=== PATIENT | female | born 1985 | race Caucasian/White ===

== ENCOUNTER 2016-04-18 10:29 | Emergency (ER) | payer OTHER ==
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
--- NOTE | 2016-04-18 11:48 | ED ---
Lower Extremity - HPI Summary HPI Summary: Pt here w/ tripping over cat this morning and twisted Rt ankle. Swelling over Rt lateral malleolus - soft tissue tender and some pain w/ ROM, weight bearing. Denies numbness/tingling/weakness, bruising or erythema. Has not taken anything for pain and does not want anything for pain at this time. No foot, toe, knee, hip or back pain. No other injuries to report. Did not hit her head nor lose consciousness. - History of Current Complaint Chief Complaint: EDExtremityLower Stated Complaint: FALL / RT ANKLE INJURY Time Seen by Provider: 04/18/16 10:42 Hx Obtained From: Patient Hx Last Menstrual Period: 08/06/15 Pain Intensity: 5 - Allergies/Home Medications Allergies/Adverse Reactions: Allergies Allergy/AdvReac Type Severity Reaction Status Date / Time Cefaclor [From [facility]] Allergy Hives Verified 08/27/15 09:25 PMH/Surg Hx/FS Hx/Imm Hx Previously Healthy: Yes Endocrine/Hematology History: Denies: Hx Anticoagulant Therapy, Hx Blood Disorders, Hx Diabetes, Hx Thyroid Disease Cardiovascular History: Denies: Hx Hypertension Respiratory History: Denies: Hx Asthma, Hx Chronic Obstructive Pulmonary Disease (COPD) GI History: Denies: Hx Ulcer Sensory History: Denies: Hx Contacts or Glasses Opthamlomology History: Denies: Hx Contacts or Glasses - Surgical History Surgery Procedure, Year, and Place: Cholecystectomy. Tubal. T & A Infectious Disease History: No Infectious Disease History: Denies: Hx Hepatitis, Hx Human Immunodeficiency Virus (HIV), Traveled Outside the [place] in Last 30 Days - Family History Known Family History: Positive: Hypertension - Social History Alcohol Use: None Substance Use Type: Reports: None Hx Tobacco Use: No Smoking Status (MU): Never Smoked Tobacco Review of Systems Negative: Fatigue Negative: Chest Pain Negative: Shortness Of Breath Negative: Vomiting, Nausea Positive: no symptoms reported Musculoskeletal: Other - see HPI Skin: Negative Neurological: Negative Psychological: Normal All Other Systems Reviewed And Are Negative: Yes Physical Exam Triage Information Reviewed: Yes Vital Signs On Initial Exam: Initial Vitals Temp Pulse Resp BP Pulse Ox 98.4 F 82 20 112/74 98 04/18/16 10:31 04/18/16 10:31 04/18/16 10:31 04/18/16 10:31 04/18/16 10:31 Vital Signs Reviewed: Yes Appearance: Positive: Well-Appearing, No Pain Distress, Well-Nourished Skin: Positive: Warm, Dry - no erythema, no ecchymosis over affected area Head/Face: Positive: Normal Head/Face Inspection ENT: Positive: Hearing grossly normal, Pharynx normal - mucosa moist Respiratory/Lung Sounds: Positive: Breath Sounds Present Cardiovascular: Positive: Normal, Pulses are Symmetrical in both Upper and Lower Extremities - DP's +2, cap refill < 2 secs Musculoskeletal: Positive: Strength/ROM Intact - TTP over soft tissue swelling and lateral malleolus Neurological: Positive: Normal, Sensory/Motor Intact, Alert, Oriented to Person Place, Time, CN Intact II-III Psychiatric: Positive: Normal Diagnostics - Vital Signs Vital Signs Temp Pulse Resp BP Pulse Ox 04/18/16 10:31 98.4 F 82 20 112/74 98 - Laboratory Lab Statement: Any lab studies that have been ordered have been reviewed, and results considered in the medical decision making process. Lower Extremity Course/Dx - Diagnoses Provider Diagnoses: Right ankle sprain Discharge - Discharge Plan Condition: Stable Disposition: HOME Patient Education Materials: Ankle Sprain (ED), Crutch Instructions (ED), Ankle Stirrup Splint (ED) Referrals: Isidro Puga MD [Primary Care Provider] - Additional Instructions: Rest, Ice, Compress with ALISON wrap, Elevate Use crutches and advance to weight bearing as tolerated Follow-up with PCP in 1-2 weeks - if pain persists, may benefit from further assessment, treatment. *If you develop worse swelling with numbness or discoloration of foot, return to ED
[2016-04-18 12:16] VITALS: BP 118/64
== END 2016-04-18 12:14 | disposition home or self-care (01) ==
LOC: ED 10:29
DX: S99.911A Unspecified injury of right ankle, initial encounter (principal); W19.XXXA Unspecified fall, initial encounter; Y93.9 Activity, unspecified; Y92.9 Unspecified place or not applicable; Y99.9 Unspecified external cause status
CPT/HCPCS: 99282

== ENCOUNTER 2016-08-18 21:26 | Emergency (ER) | payer OTHER ==
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
[2016-08-19 00:07] VITALS: BP 126/73
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
== END 2016-08-18 23:40 | disposition home or self-care (01) ==
LOC: ED 21:26
DX: S00.81XA Abrasion of other part of head, initial encounter (principal); S00.33XA Contusion of nose, initial encounter; M54.2 Cervicalgia; R51 Headache; Y09 Assault by unspecified means; Y93.9 Activity, unspecified; Y92.9 Unspecified place or not applicable
CPT/HCPCS: 70450; 70486; 72125; 99282

== ENCOUNTER 2017-05-27 14:04 | Emergency (ER) | payer OTHER ==
[2017-05-27 16:04] VITALS: BP 115/62
[2017-05-27 16:33] LABS: Hematocrit 35 % (35-47); Hemoglobin 12.5 g/dl (12.0-16.0); Mean Corpuscular HGB Conc 35 g/dl (31-36); Mean Corpuscular Hemoglobin 31 pg (27-31); Mean Corpuscular Volume 89 fL (80-97); Mean Platelet Volume 8 um3 (7.4-10.4); Platelet Count 247 10^3/ul (150-450); Red Blood Count 3.98 10^6/ul (4.0-5.4); Red Cell Distribution Width 13 % (10.5-15); White Blood Count 3.6 10^3/ul (3.5-10.8)
[2017-05-27 16:52] LABS: EGFR Non-African American 125.5 (>60)
[2017-05-27 16:53] LABS: Uric Acid 3.9 mg/dL (2.3-6.6)
[2017-05-27 17:25] LABS: ABS Basophils 0 10^3/ul (0-0.2); ABS Eosinophils 0.2 10^3/ul (0-0.6); ABS Lymphocytes 2.1 10^3/ul (1.0-4.8); ABS Monocytes 0.3 10^3/ul (0-0.8); ABS Nucleated RBC 0 10^3/ul; Lymphocyte % 58.6 % (25-47); Nucleated Red Blood Cells % 0.1
--- NOTE | 2017-05-31 13:42 | ED ---
Taniya Saleem Gabriel, scribed for Alan Jimenez MD on 05/27/17 at 1707 . Lower Extremity - HPI Summary HPI Summary: This patient is a 32 year old F presenting to [facility] with a chief complaint of fluid on her right knee. She saw her PCP today and was sent in for blood work after they found out she had a low WBC. The patient rates the cramping pain 2/ 10 in severity. Patient denies fever, sweats, chills, calf swelling, trauma, redness, and decreased ROM. - History of Current Complaint Chief Complaint: EDGeneral Stated Complaint: ABNORMAL LABS-DR SENT Time Seen by Provider: 05/27/17 15:54 Hx Obtained From: Patient Hx Last Menstrual Period: 08/06/15 Onset/Duration: Still Present Severity Initially: Mild Severity Currently: Mild Pain Intensity: 2 Pain Scale Used: 0-10 Numeric Associated Signs And Symptoms: Positive: Negative - fever, sweats, chills, calf swelling, trauma, redness, and decreased ROM., Swelling - minor - Allergies/Home Medications Allergies/Adverse Reactions: Allergies Allergy/AdvReac Type Severity Reaction Status Date / Time cefaclor [From [facility]] Allergy Hives Verified 05/27/17 14:13 PMH/Surg Hx/FS Hx/Imm Hx Endocrine/Hematology History: Denies: Hx Anticoagulant Therapy, Hx Blood Disorders, Hx Diabetes, Hx Thyroid Disease Cardiovascular History: Denies: Hx Hypertension Respiratory History: Denies: Hx Asthma, Hx Chronic Obstructive Pulmonary Disease (COPD) GI History: Denies: Hx Ulcer Sensory History: Denies: Hx Contacts or Glasses Opthamlomology History: Denies: Hx Contacts or Glasses - Surgical History Surgery Procedure, Year, and Place: Cholecystectomy. Tubal. T & A Infectious Disease History: No Infectious Disease History: Denies: Hx Hepatitis, Hx Human Immunodeficiency Virus (HIV), Traveled Outside the [place] in Last 30 Days - Family History Known Family History: Positive: Hypertension - Social History Alcohol Use: None Substance Use Type: Reports: None Substance Use Comment - Amount & Last Used: suboxone for maintence Hx Tobacco Use: No Smoking Status (MU): Light Every Day Tobacco Smoker Review of Systems Negative: Fever, Chills, Skin Diaphoresis Negative: Erythema Negative: Sore Throat Negative: Chest Pain Negative: Shortness Of Breath, Cough Negative: Abdominal Pain, Vomiting, Nausea Negative: dysuria, hematuria Positive: Other - R knee pain . Negative: Myalgia, Edema Negative: Rash Neurological: Negative - dizziness All Other Systems Reviewed And Are Negative: Yes Physical Exam - Summary Physical Exam Summary: Constitutional: Well-developed, Well-nourished, Alert. (-) Distressed Skin: Warm, Dry HENT: Normocephalic; Atraumatic Eyes: Conjunctiva normal Neck: Musculoskeletal ROM normal neck. (-) JVD, (-) Stridor, (-) Tracheal deviation Cardio: Rhythm regular, rate normal, Heart sounds normal; Intact distal pulses; The pedal pulses are 2+ and symmetric. Radial pulses are 2+ and symmetric. (-) Murmur Pulmonary/Chest wall: Effort normal. (-) Respiratory distress, (-) Wheezes, (-) Rales Abd: Soft, (-) Tenderness, (-) Distension, (-) Guarding, (-) Rebound Musculoskeletal: (-) Edema Lymph: (-) Cervical adenopathy Neuro: Alert, Oriented x3 Psych: Mood and affect Normal Triage Information Reviewed: Yes Vital Signs On Initial Exam: Initial Vitals Temp Pulse Resp BP Pulse Ox 96.7 F 67 16 113/63 98 05/27/17 14:13 05/27/17 14:13 05/27/17 14:13 05/27/17 14:13 05/27/17 14:13 Vital Signs Reviewed: Yes Diagnostics - Vital Signs Vital Signs Temp Pulse Resp BP Pulse Ox 05/27/17 17:00 56 97 05/27/17 16:00 100 115/62 95 05/27/17 15:58 57 98 05/27/17 15:56 110/64 05/27/17 14:13 96.7 F 67 16 113/63 98 - Laboratory Lab Results: Lab Results 05/27/17 05/27/17 Range/Units 16:17 16:17 WBC 3.6 (3.5-10.8) 10^3/ul RBC 3.98 L (4.0-5.4) 10^6/ul Hgb 12.5 (12.0-16.0) g/dl Hct 35 (35-47) % MCV 89 (80-97) fL MCH 31 (27-31) pg MCHC 35 (31-36) g/dl RDW 13 (10.5-15) % Plt Count 247 (150-450) 10^3/ul MPV 8 (7.4-10.4) um3 ESR Pending Sodium 137 (133-145) mmol/L Potassium 3.3 L (3.5-5.0) mmol/L Chloride 104 (101-111) mmol/L Carbon Dioxide 27 (22-32) mmol/L Anion Gap 6 (2-11) mmol/L BUN 13 (6-24) mg/dL Creatinine 0.56 (0.51-0.95) mg/dL Est GFR ( Amer) 161.3 (>60) Est GFR (Non-Af Amer) 125.5 (>60) BUN/Creatinine Ratio 23.2 H (8-20) Glucose 111 H (70-100) mg/dL Uric Acid 3.9 (2.3-6.6) mg/dL Calcium 9.2 (8.6-10.3) mg/dL Total Bilirubin 0.40 (0.2-1.0) mg/dL AST 101 H (13-39) U/L ALT 152 H (7-52) U/L Alkaline Phosphatase 106 H (34-104) U/L C-Reactive Protein 2.45 (< 5.00) mg/L Total Protein 6.8 (6.4-8.9) g/dL Albumin 4.2 (3.2-5.2) g/dL Globulin 2.6 (2-4) g/dL Albumin/Globulin Ratio 1.6 (1-3) Result Diagrams: 18 16:17 18 16:17 Lab Statement: Any lab studies that have been ordered have been reviewed, and results considered in the medical decision making process. Re-Evaluation - Re-Evaluation First Eval Re-Evaluation Time: 17:32 Change: Unchanged - The patient states she went in for check-up and said occasionally her right knee is stiff so he sent her in for blood work. Second Eval Re-Evaluation Time: 17:37 Change: Unchanged Comment: Discussed test results and follow up with Dr. Vee. Lower Extremity Course/Dx - Course Assessment/Plan: This patient is a 32 year old F presenting to [facility] with a chief complaint of fluid on her knee. She saw her PCP today and was sent in for blood work after they found out she had a low WBC. The patient rates the cramping pain 2/10 in severity. Patient denies fever, sweats, chills, calf swelling, trauma, redness, and decreased ROM. There are no signs of gout, infection in the joint, or fracture. Dx encounter for medical screening and neutropenia. Test results with no significant abnormalities except for an ESR of 18. Patient will be discharged and follow up from Dr. Vee in 2 days. The patient is agreeable with this plan. - Diagnoses Provider Diagnoses: Encounter for medical screening examination, Neutropenia - Physician Notifications Discussed Care Of Patient With: Pablo Vee Time Discussed With Above Provider: 17:35 Instructed by Provider To: Other - We discussed patient care with Dr. Vee and they have agreed to follow up with the patient in their office. Discharge - Sign-Out/Discharge Documenting (check all that apply): Discharge - Discharge Plan Condition: Stable Disposition: HOME Patient Education Materials: Knee Pain (ED) Referrals: Charly Jason MD [Primary Care Provider] - 4 Days Pablo Vee MD [Medical Doctor] - 2 Days Additional Instructions: RETURN TO THE EMERGENCY DEPARTMENT FOR CHANGING OR WORSENING SYMPTOMS. The documentation as recorded by the Taniya hoang Gabriel accurately reflects the service I personally performed and the decisions made by me, Alan Jimenez MD.
== END 2017-05-27 17:58 | disposition home or self-care (01) ==
LOC: ED 14:04
DX: D70.9 Neutropenia, unspecified (principal); M25.461 Effusion, right knee; M25.561 Pain in right knee; Z88.1 Allergy status to other antibiotic agents; F17.210 Nicotine dependence, cigarettes, uncomplicated
CPT/HCPCS: 36415; 80053; 84550; 85025; 85652; 86140; 87040; 99282

== ENCOUNTER 2018-10-11 12:47 | Emergency (ER) | payer OTHER ==
--- OUTSIDE RECORDS SUMMARY | 2018-10-11 13:00 | XMS REPORT | Continuity of Care Document ---
:1985 External Reference #:[id number] Author Name Ethan Dawkinstay Care Team Providers Name Role Phone Kelsea Oneal M.D. Primary Care Physician Unavailable Payers Date Identification Numbers Payment Provider Subscriber Effective: Policy Number: [id number] [place] Jossy Sutton 2017 Medicaid PayID: [id number] [address] [address] [place] [address] Advance Directives Type Date Description Status Comment Other Directive 06/18/2017 Health Care Proxy Current and Verified Problems Active Problems Provider Date Bipolar affective disorder, currently Charly aJson M.D. Onset: 2016 depressed, mild Anxiety state Charly Jason M.D. Onset: 11/07/2016 Opioid abuse Charly Jason M.D. Onset: 11/07/2016 Light cigarette smoker (1-9 cigs/day) Vidal Wright M.D.,FACP Onset: Marijuana user Vidal Wright M.D.,FACP Onset: 09/01/2017 Note: occasional Inactive Problems Liver function tests abnormal Charly Jason M.D. Onset: 06/09/2017 Inactive: 07/02/2017 Resolved Problems Neutropenia Charly Jason M.D. Onset: 06/09/2017 Resolved: 07/02/2017 Nonalcoholic steatohepatitis Vidal Wright M.D.,FACP Onset: 07/02/2017 Resolved: 09/01/2017 Note: suspect, but normal U/S Family History Date Family Member(s) Observation Comments Father Heart Disease Father due to [place] () - at age 63 heavy smoker and drinker Father Hypertension Father Alcoholism Mother Depression Onset: (age 11 Years) First Son Leukemia ALL Siblings 3 Social History Type Date Description Comments Sex Unknown Marital Status Lives With and 2 young children, one with Leukemia Occupation Currently Working [employer], shift leader ETOH Use 03/04/2017 Denies alcohol use Recreational Drug Use Formerly addicted to on Suboxone now Percocet Tobacco Use Start: Unknown Patient is a current smoker, smokes some days Smoking Status Reviewed: 10/07/18 Patient is a current smoker, smokes some days Allergies, Adverse Reactions, Alerts Active Allergies Reaction Severity Comments Date Cefaclor hives 11/07/2016 Medications Active Medications SIG Qnty Indications Ordering Provider Date Zolpidem Tartrate one half to one 30tabs G47.00 Kelsea Oneal MD 10/07/2018 5mg tablet by mouth Tablets at bedtime, as needed for insomnia Suboxone 1 and half strips 45units Kelsea Oneal MD 07/02/2017 8-2mg Film once a day Depakote take 1 tablet by 30tabs Vidal Massey 500mg mouth every day Luis Wright,FACP Tablets DR Smart take 1 and 1/2 45tabs Kelsea Oneal MD 100mg Tablets tabs by mouth every day History Medications Buprenorphine use once a day 20units F11.21 Kelsea Oneal, 05/28/2018 - Hydrochloride/Naloxone in addition to 10/07/2018 Hydrochloride 8mg strip as 2-0.5mg Film needed Chantix Continuing Month [place] 1 by mouth 60tabs Vidal Massey 12/03/2017 - 1mg twice a day [place], 12/26/2017 Tablets MYueDYue,FACP Chantix Starting Month [place] as directed 53tabs Vidal Massey 10/10/2017 - 0.5mg X 11 [place], 11/21/2017 & 1 mg X 42 Tablets M.DYue,FACP Gabapentin take 1 capsule 90caps M79.2 Vidal Massey 10/06/2017 - 100mg Capsules by mouth three [place], 05/28/2018 times a day M.Bryson,FACP Suboxone take 1/2 film 7units Vidal Massey 03/04/2017 - 12-3mg Film under the [place], 07/02/2017 tongue once a M.D.,FACP day Suboxone once sl daily 7units Charly 11/07/2016 - 4-1mg Film [place], 03/04/2017 M.DYue Colace 1 tab by mouth Unknown - 100mg Capsules 2-3 times a 10/06/2018 day as needed Immunizations CPT Code Status Date Vaccine Reaction Lot # [id number] Given 07/15/2018 Pneumococcal Conjugate shot was tolerated [id number] Vaccine 13 Valent For well, no immediate Intramuscular Use reaction [id number] Given 11/21/2017 Influenza Virus Vaccine, [id number] Quadrivalent, Split, Preservative Free 14584 Given 06/18/2017 Tdap - [id number] Tetanus/Diptheria/Acellular Pertussis [id number] Given 04/03/2017 Pneumonia Vaccine [id number] Given 04/03/2017 Influenza Virus Vaccine, [id number] Quadrivalent, Split, Preservative Free Vital Signs Date Vital Result Comment 10/07/2018 9:21am Height 62 inches 5'2" Weight 180.00 lb Heart Rate 60 /min BP Systolic 120 mmHg BP Diastolic 70 mmHg Body Temperature 98.4 F O2 % BldC Oximetry 98 % BMI (Body Mass Index) 32.9 kg/m2 07/15/2018 8:49am Height 62 inches 5'2" Weight 175.00 lb Heart Rate 68 /min BP Systolic 122 mmHg BP Diastolic 82 mmHg Body Temperature 97.6 F O2 % BldC Oximetry 97 % BMI (Body Mass Index) 32.0 kg/m2 05/28/2018 9:56am Height 62 inches 5'2" Weight 175.25 lb Heart Rate 72 /min BP Systolic 119 mmHg BP Diastolic 81 mmHg Body Temperature 97.7 F O2 % BldC Oximetry 97 % BMI (Body Mass Index) 32.1 kg/m2 04/24/2018 11:10am Height 62 inches 5'2" Weight 172.00 lb Heart Rate 71 /min BP Systolic 105 mmHg BP Diastolic 65 mmHg Body Temperature 98.9 F O2 % BldC Oximetry 97 % BMI (Body Mass Index) 31.5 kg/m2 02/13/2018 11:43am Height 62 inches 5'2" Weight 183.00 lb Heart Rate 112 /min BP Systolic Sitting 110 mmHg BP Diastolic Sitting 80 mmHg Body Temperature 98.5 F O2 % BldC Oximetry 95 % BMI (Body Mass Index) 33.5 kg/m2 12/26/2017 11:16am Height 62 inches 5'2" Weight 183.00 lb Heart Rate 81 /min BP Systolic Sitting 112 mmHg BP Diastolic Sitting 64 mmHg Body Temperature 97.3 F O2 % BldC Oximetry 95 % BMI (Body Mass Index) 33.5 kg/m2 11/21/2017 10:48am Height 62 inches 5'2" Weight 185.00 lb Heart Rate 72 /min BP Systolic Sitting 100 mmHg BP Diastolic Sitting 68 mmHg Body Temperature 97.5 F O2 % BldC Oximetry 95 % BMI (Body Mass Index) 33.8 kg/m2 10/10/2017 11:20am Height 62 inches 5'2" Weight 183.00 lb Heart Rate 70 /min BP Systolic Sitting 116 mmHg BP Diastolic Sitting 70 mmHg Body Temperature 97.8 F O2 % BldC Oximetry 96 % BMI (Body Mass Index) 33.5 kg/m2 10/06/2017 11:10am Height 62 inches 5'2" Weight 184.00 lb Heart Rate 91 /min BP Systolic Sitting 118 mmHg BP Diastolic Sitting 80 mmHg Body Temperature 97.3 F O2 % BldC Oximetry 94 % BMI (Body Mass Index) 33.7 kg/m2 09/01/2017 8:35am Height 62 inches 5'2" Weight 187.00 lb Heart Rate 73 /min BP Systolic Sitting 104 mmHg BP Diastolic Sitting 68 mmHg Body Temperature 96.9 F O2 % BldC Oximetry 96 % BMI (Body Mass Index) 34.2 kg/m2 07/02/2017 8:46am Height 62 inches 5'2" Weight 192.38 lb Heart Rate 56 /min BP Systolic Sitting 112 mmHg BP Diastolic Sitting 72 mmHg Body Temperature 97.5 F O2 % BldC Oximetry 97 % BMI (Body Mass Index) 35.2 kg/m2 06/18/2017 8:03am Height 62 inches 5'2" Weight 192.00 lb Heart Rate 77 /min BP Systolic Sitting 110 mmHg BP Diastolic Sitting 68 mmHg Body Temperature 98.5 F O2 % BldC Oximetry 99 % BMI (Body Mass Index) 35.1 kg/m2 06/09/2017 9:53am Height 62 inches 5'2" Weight 192.50 lb Heart Rate 86 /min BP Systolic 120 mmHg BP Diastolic 82 mmHg Body Temperature 100.6 F O2 % BldC Oximetry 96 % BMI (Body Mass Index) 35.2 kg/m2 05/26/2017 11:09am Height 62 inches 5'2" Weight 196.12 lb Heart Rate 73 /min BP Systolic Sitting 118 mmHg BP Diastolic Sitting 80 mmHg O2 % BldC Oximetry 98 % BMI (Body Mass Index) 35.9 kg/m2 05/15/2017 10:14am Weight 198.38 lb Heart Rate 59 /min BP Systolic Sitting 118 mmHg BP Diastolic Sitting 80 mmHg Body Temperature 97.8 F O2 % BldC Oximetry 97 % 04/03/2017 12:42pm Weight 200.00 lb Heart Rate 84 /min BP Systolic Sitting 116 mmHg BP Diastolic Sitting 74 mmHg Body Temperature 98.5 F O2 % BldC Oximetry 98 % 03/04/2017 2:38pm Weight 202.00 lb Heart Rate 65 /min BP Systolic 118 mmHg BP Diastolic 68 mmHg Body Temperature 97.2 F O2 % BldC Oximetry 98 % 02/13/2017 9:34am Weight 199.12 lb Heart Rate 54 /min BP Systolic Sitting 118 mmHg BP Diastolic Sitting 76 mmHg Body Temperature 97.6 F O2 % BldC Oximetry 96 % 11/07/2016 3:31pm Height 62 inches 5'2" Weight 194.25 lb Heart Rate 67 /min BP Systolic 118 mmHg BP Diastolic 80 mmHg Body Temperature 97.5 F O2 % BldC Oximetry 97 % BMI (Body Mass Index) 35.5 kg/m2 Results Test Date Facility Test Result H/L Range Note CBC Auto 07/15/2018 [facility] White Blood 8.9 10^3/uL Normal 3.5-10.[address] [place] [address] [phone] Red Blood Count 4.36 10^6/uL Normal 3.70-4.87 Hemoglobin 13.6 g/dL Normal 12.0-16.0 Hematocrit 39 % Normal 35-47 Mean Corpuscular Volume 89 fL Normal 80-97 Mean Corpuscular Hemoglobin 31 pg Normal 27-31 Mean Corpuscular HGB Conc 35 g/dL Normal 31-36 Red Cell Distribution Width 13 % Normal 10.5-15 Platelet Count 270 10^3/uL Normal 150-450 Mean Platelet Volume 8.2 fL Normal 7.4-10.4 Abs Neutrophils 6.4 10^3/uL Normal 1.5-7.7 Abs Lymphocytes 1.8 10^3/uL Normal 1.0-4.8 Abs Monocytes 0.6 10^3/uL Normal 0-0.8 Abs Eosinophils 0.1 10^3/uL Normal 0-0.6 Abs Basophils 0.0 10^3/uL Normal 0-0.2 Abs Nucleated RBC 0.0 10^3/uL Granulocyte % 72.0 % Lymphocyte % 20.6 % Monocyte % 6.4 % Eosinophil % 0.6 % Basophil % 0.4 % Nucleated Red Blood Cells % 0.0 Comp Metabolic 07/15/2018 [facility] Sodium 136 mmol/L Normal 135-[address] [place] [address] [phone] Potassium 3.9 mmol/L Normal 3.5-5.0 Chloride 105 mmol/L Normal 101-111 Co2 Carbon Dioxide 24 mmol/L Normal 22-32 Anion Gap 7 mmol/L Normal 2-11 Glucose 91 mg/dL Normal 70-100 Blood Urea Nitrogen 10 mg/dL Normal 6-24 Creatinine 0.55 mg/dL Normal 0.51-0.95 BUN/Creatinine Ratio 18.2 Normal 8-20 Calcium 9.6 mg/dL Normal 8.6-10.3 Total Protein 7.3 g/dL Normal 6.4-8.9 Albumin 4.9 g/dL Normal 3.2-5.2 Globulin 2.4 g/dL Normal 2-4 Albumin/Globulin Ratio 2.0 Normal 1-3 Total Bilirubin 0.40 mg/dL Normal 0.2-1.0 Alkaline Phosphatase 82 U/L Normal 34-104 Alt 37 U/L Normal 7-52 Ast 21 U/L Normal 13-39 Egfr Non- 127.3 >60 Egfr 154.0 >60 1 Laboratory test 07/15/2018 [facility] Hemoglobin A1c 4.8 % Normal 4.0-5.6 [address] (Glyco HGB) [place] [address] [phone] Lipid Profile 07/15/2018 [facility] Triglycerides 73 3 (Trig/Chol/HDL) [address] mg/[place] [address] [phone] Cholesterol 141 mg/dL 4 HDL Cholesterol 43.1 mg/dL 5 LDL Cholesterol 83 mg/dL 6 Laboratory 07/15/2018 [facility] TSH (Thyroid 2.21 Normal 0.34 -5.60 7 test finding [address] Stim Horm) mcIU/[place] [address] [phone] Drug Abuse 20 04/24/2018 [facility] Urine Negative 8, Urine [address] Amphetamine ng/mL 9 [place] [address] [phone] Urine Barbiturates Negative ng/mL 10 Urine Benzodiazepines Negative ng/mL 11 Urine Cocaine Negative ng/mL 12 Urine Phencyclidine Negative ng/mL Cutoff: 25 Urine Tetrahydrocannabinol Presumptive Posi <SEE NOTE> Abnormal Cutoff: 50 13 ng/mL Creatinine, Urine 341.4 mg/dL Specific [place] 1.022 pH 6.1 Oxidants Negative 14 Adulterants Comment Normal Codeine, Ur Not Detected ng/mL Cutoff: 25 15 Xbcmlqq-7-fvva-glucuronide, Ur Not Detected ng/mL 16 Morphine, Ur Not Detected ng/mL Cutoff: 25 17 Geftctvc-7-aeso-glucuronide, U Not Detected ng/mL 18 6-monoacetylmorphine, Ur Not Detected ng/mL Cutoff: 25 19 Hydrocodone, Ur Not Detected ng/mL Cutoff: 25 20 Norhydrocodone, Ur Not Detected ng/mL Cutoff: 25 21 Dihydrocodeine, Ur Not Detected ng/mL Cutoff: 25 22 Hydromorphone, Ur Not Detected ng/mL Cutoff: 25 23 Pwimsqqyboicw6ggirjrbbyfardjr Not Detected ng/mL 24 Oxycodone, Ur Not Detected ng/mL Cutoff: 25 25 Noroxycodone, Ur Not Detected ng/mL Cutoff: 25 26 Oxymorphone, Ur Not Detected ng/mL Cutoff: 25 27 Crolvndsppb-8-msgl-glucuronide Not Detected ng/mL 28 Noroxymorphone, Ur Present ng/mL Abnormal Cutoff: 25 29 Fentanyl, Ur Not Detected ng/mL Cutoff: 2 30 Norfentanyl, Ur Not Detected ng/mL Cutoff: 2 31 Meperidine, Ur Not Detected ng/mL Cutoff: 25 32 Normeperidine, Ur Not Detected ng/mL Cutoff: 25 33 Naloxone, Ur Not Detected ng/mL Cutoff: 25 34 Enabpogp-1-czia-glucuronide, U Present ng/mL Abnormal 35 Methadone, Ur Not Detected ng/mL Cutoff: 25 36 Eddp, Ur Not Detected ng/mL Cutoff: 25 37 Propoxyphene, Ur Not Detected ng/mL Cutoff: 25 38 Norpropoxyphene, Ur Not Detected ng/mL Cutoff: 25 39 Tramadol, Ur Not Detected ng/mL Cutoff: 25 40 O-desmethyltramadol, Ur Not Detected ng/mL Cutoff: 25 41 Tapentadol, Ur Not Detected ng/mL Cutoff: 25 42 N-desmethyltapentadol, Ur Not Detected ng/mL Cutoff: 50 43 Urbzgukrln-jggk-ztsythgnuni, U Not Detected ng/mL 44 Buprenorphine, Ur Present ng/mL Abnormal Cutoff: 5 45 Norbuprenorphine, Ur Present ng/mL Abnormal Cutoff: 5 46 Norbuprenorphine glucuronide Present ng/mL Abnormal Cutoff: 20 47 Opioid Interpretation See Comment 48 THC Confirmation 04/24/2018 [facility] Urine Carboxy 446 ng/mL [address] [address] [phone] Urine THC Interpretation Positive. 50 Drug Abuse 11/21/2017 [facility] Urine Amphetamine Negative ng/ mL 51, 52 [address] [place] [address] [phone] Urine Barbiturates Negative ng/mL 53 Urine Benzodiazepines Negative ng/mL 54 Urine Cocaine Negative ng/mL 55 Urine Phencyclidine Negative ng/mL Cutoff: 25 Urine Tetrahydrocannabinol Presumptive Posi <SEE NOTE> Abnormal Cutoff: 50 56 ng/mL Creatinine, Urine 381.4 mg/dL Specific [place] 1.023 pH 6.2 Oxidants Negative 57 Adulterants Comment Normal Codeine, Ur Not Detected ng/mL Cutoff: 25 58 Agmvhcc-5-kqkt-glucuronide, Ur Not Detected ng/mL 59 Morphine, Ur Not Detected ng/mL Cutoff: 25 60 Bdpoqbjg-3-gyyt-glucuronide, U Not Detected ng/mL 61 6-monoacetylmorphine, Ur Not Detected ng/mL Cutoff: 25 62 Hydrocodone, Ur Not Detected ng/mL Cutoff: 25 63 Norhydrocodone, Ur Not Detected ng/mL Cutoff: 25 64 Dihydrocodeine, Ur Not Detected ng/mL Cutoff: 25 65 Hydromorphone, Ur Not Detected ng/mL Cutoff: 25 66 Qgppfsriqsujb7zpeeypxlzlycoea Not Detected ng/mL 67 Oxycodone, Ur Not Detected ng/mL Cutoff: 25 68 Noroxycodone, Ur Not Detected ng/mL Cutoff: 25 69 Oxymorphone, Ur Not Detected ng/mL Cutoff: 25 70 Xzxznseblxx-4-ipxg-glucuronide Not Detected ng/mL 71 Noroxymorphone, Ur Not Detected ng/mL Cutoff: 25 72 Fentanyl, Ur Not Detected ng/mL Cutoff: 2 73 Norfentanyl, Ur Not Detected ng/mL Cutoff: 2 74 Meperidine, Ur Not Detected ng/mL Cutoff: 25 75 Normeperidine, Ur Not Detected ng/mL Cutoff: 25 76 Naloxone, Ur Not Detected ng/mL Cutoff: 25 77 Wrlgzyfm-2-ctuq-glucuronide, U Present ng/mL Abnormal 78 Methadone, Ur Not Detected ng/mL Cutoff: 25 79 Eddp, Ur Not Detected ng/mL Cutoff: 25 80 Propoxyphene, Ur Not Detected ng/mL Cutoff: 25 81 Norpropoxyphene, Ur Not Detected ng/mL Cutoff: 25 82 Tramadol, Ur Not Detected ng/mL Cutoff: 25 83 O-desmethyltramadol, Ur Not Detected ng/mL Cutoff: 25 84 Tapentadol, Ur Not Detected ng/mL Cutoff: 25 85 N-desmethyltapentadol, Ur Not Detected ng/mL Cutoff: 50 86 Ekjxtatzbn-gqvb-xqhopqwgedr, U Not Detected ng/mL 87 Buprenorphine, Ur Present ng/mL Abnormal Cutoff: 5 88 Norbuprenorphine, Ur Present ng/mL Abnormal Cutoff: 5 89 Norbuprenorphine glucuronide Present ng/mL Abnormal Cutoff: 20 90 Opioid Interpretation See Comment 91 THC Confirmation 11/21/2017 [facility] Urine Carboxy 196 ng/mL [address] [place] [address] [phone] Urine THC Interpretation Positive. 93 Comp Metabolic 10/08/2017 [facility] Sodium 138 mmol/L Normal 135-[address] [place] [address] [phone] Potassium 4.1 mmol/L Normal 3.5-5.0 Chloride 103 mmol/L Normal 101-111 Co2 Carbon Dioxide 31 mmol/L Normal 22-32 Anion Gap 4 mmol/L Normal 2-11 Glucose 83 mg/dL Normal 70-100 Blood Urea Nitrogen 13 mg/dL Normal 6-24 Creatinine 0.60 mg/dL Normal 0.51-0.95 BUN/Creatinine Ratio 21.7 High 8-20 Calcium 9.1 mg/dL Normal 8.6-10.3 Total Protein 6.8 g/dL Normal 6.4-8.9 Albumin 4.4 g/dL Normal 3.2-5.2 Globulin 2.4 g/dL Normal 2-4 Albumin/Globulin Ratio 1.8 Normal 1-3 Total Bilirubin 0.20 mg/dL Normal 0.2-1.0 Alkaline Phosphatase 69 U/L Normal 34-104 Alt 27 U/L Normal 7-52 Ast 18 U/L Normal 13-39 Egfr Non- 115.9 >60 Egfr 140.2 >60 94 Laboratory 10/08/2017 [facility] TSH (Thyroid 5.39 Normal 0.34 -5.60 test finding [address] Stim Horm) mcIU/[place] [address] [phone] Vitamin B12 10/08/2017 [facility] Vitamin B12 1144 pg/mL High 180-914 95 And Folate [address] [place] [address] [phone] Folic Acid (Folate) > 20.00 ng/mL >3.99 Drug Abuse 20 09/01/2017 [facility] Urine Amphetamine Negative ng/mL [address] [place] [address] [phone] Urine Barbiturates Negative ng/mL 97 Urine Benzodiazepines Negative ng/mL 98 Urine Cocaine Negative ng/mL 99 Urine Phencyclidine Negative ng/mL Cutoff: 25 Urine Tetrahydrocannabinol Presumptive Posi <SEE NOTE> Abnormal Cutoff: 50 100 ng/mL Creatinine, Urine 209.1 mg/dL Specific [place] 1.021 pH 6.3 Oxidants Negative 101 Adulterants Comment Normal Codeine, Ur Not Detected ng/mL Cutoff: 25 102 Qbwvlte-1-tjjw-glucuronide, Ur Not Detected ng/mL 103 Morphine, Ur Not Detected ng/mL Cutoff: 25 104 Fyanviby-4-lpnt-glucuronide, U Not Detected ng/mL 105 6-monoacetylmorphine, Ur Not Detected ng/mL Cutoff: 25 106 Hydrocodone, Ur Not Detected ng/mL Cutoff: 25 107 Norhydrocodone, Ur Not Detected ng/mL Cutoff: 25 108 Dihydrocodeine, Ur Not Detected ng/mL Cutoff: 25 109 Hydromorphone, Ur Not Detected ng/mL Cutoff: 25 110 Pdovnlcfxjaox3ntbayltcnufrbgf Not Detected ng/mL 111 Oxycodone, Ur Not Detected ng/mL Cutoff: 25 112 Noroxycodone, Ur Not Detected ng/mL Cutoff: 25 113 Oxymorphone, Ur Not Detected ng/mL Cutoff: 25 114 Izoehpenlvj-7-nktw-glucuronide Not Detected ng/mL 115 Noroxymorphone, Ur Present ng/mL Abnormal Cutoff: 25 116 Fentanyl, Ur Not Detected ng/mL Cutoff: 2 117 Norfentanyl, Ur Not Detected ng/mL Cutoff: 2 118 Meperidine, Ur Not Detected ng/mL Cutoff: 25 119 Normeperidine, Ur Not Detected ng/mL Cutoff: 25 120 Naloxone, Ur Present ng/mL Abnormal Cutoff: 25 121 Zlixpzpy-5-fpwy-glucuronide, U Present ng/mL Abnormal 122 Methadone, Ur Not Detected ng/mL Cutoff: 25 123 Eddp, Ur Not Detected ng/mL Cutoff: 25 124 Propoxyphene, Ur Not Detected ng/mL Cutoff: 25 125 Norpropoxyphene, Ur Not Detected ng/mL Cutoff: 25 126 Tramadol, Ur Not Detected ng/mL Cutoff: 25 127 O-desmethyltramadol, Ur Not Detected ng/mL Cutoff: 25 128 Tapentadol, Ur Not Detected ng/mL Cutoff: 25 129 N-desmethyltapentadol, Ur Not Detected ng/mL Cutoff: 50 130 Wccknfjeyg-vsmb-rfqtjtjpkmc, U Not Detected ng/mL 131 Buprenorphine, Ur Present ng/mL Abnormal Cutoff: 5 132 Norbuprenorphine, Ur Present ng/mL Abnormal Cutoff: 5 133 Norbuprenorphine glucuronide Present ng/mL Abnormal Cutoff: 20 134 Opioid Interpretation See Comment 135 THC Confirmation 09/01/2017 [facility] Urine Carboxy 155 ng/mL [address] [place] [address] [phone] Urine THC Interpretation Positive. 137 Laboratory test 06/18/2017 [facility] Cytology SEE RESULT [address] [place] [address] [phone] CBC Auto Diff 06/09/2017 [facility] White Blood 6.1 10^3/uL Normal 3.5-[address] Count 0.8 [place] [address] [phone] Red Blood Count 4.06 10^6/uL Normal 4.0-5.4 Hemoglobin 12.7 g/dL Normal 12.0-16.0 Hematocrit 36 % Normal 35-47 Mean Corpuscular Volume 88 fL Normal 80-97 Mean Corpuscular Hemoglobin 31 pg Normal 27-31 Mean Corpuscular HGB Conc 36 g/dL Normal 31-36 Red Cell Distribution Width 13 % Normal 10.5-15 Platelet Count 280 10^3/uL Normal 150-450 Mean Platelet Volume 7.6 um3 Normal 7.4-10.4 Abs Neutrophils 2.6 10^3/uL Normal 1.5-7.7 Abs Lymphocytes 2.8 10^3/uL Normal 1.0-4.8 Abs Monocytes 0.5 10^3/uL Normal 0-0.8 Abs Eosinophils 0.1 10^3/uL Normal 0-0.6 Abs Basophils 0 10^3/uL Normal 0-0.2 Abs Nucleated RBC 0 10^3/uL Granulocyte % 42.8 % Normal 38-83 Lymphocyte % 46.1 % Normal 25-47 Monocyte % 8.7 % High 0-7 Eosinophil % 1.9 % Normal 0-6 Basophil % 0.5 % Normal 0-2 Nucleated Red Blood Cells % 0 Laboratory 06/09/2017 [facility] HIV 1&2 AB Nonreactive Nonreactive 139 test finding [address] [place] [address] Referred [phone] Comp 06/09/2017 [facility] Sodium 141 mmol/L Normal 139-[address] [place] [address] [phone] Potassium 4.1 mmol/L Normal 3.5-5.0 Chloride 104 mmol/L Normal 101-111 Co2 Carbon Dioxide 28 mmol/L Normal 22-32 Anion Gap 9 mmol/L Normal 2-11 Glucose 80 mg/dL Normal 70-100 Blood Urea Nitrogen 13 mg/dL Normal 6-24 Creatinine 0.61 mg/dL Normal 0.51-0.95 BUN/Creatinine Ratio 21.3 High 8-20 Calcium 9.7 mg/dL Normal 8.6-10.3 Total Protein 7.1 g/dL Normal 6.4-8.9 Albumin 4.6 g/dL Normal 3.2-5.2 Globulin 2.5 g/dL Normal 2-4 Albumin/Globulin Ratio 1.8 Normal 1-3 Total Bilirubin 0.30 mg/dL Normal 0.2-1.0 Alkaline Phosphatase 71 U/L Normal 34-104 Alt 17 U/L Normal 7-52 Ast 18 U/L Normal 13-39 Egfr Non- 113.7 >60 Egfr 146.2 >60 140 Hepatitis B Yves 05/29/2017 [facility] Hepatitis B Immune Immune AB Titer [address] [place], [place] [id number] [phone] Hep B Surf AB Level 99.27 mIU/mL >12 Laboratory 05/29/2017 [facility] Hepatitis B Nonreactive Nonreactive test finding [address] [place] [address] [phone] Hepatitis B Core AB Total Negative Negative 141 Hepatitis A Igg Antibody, Serum Negative 142 Ferritin 55.8 ng/mL Normal 11-307 Iron & Iron Binding 05/29/2017 [facility] Iron 97 g/dL Normal 50-212 Capacity [address] [place] [address] [phone] Unsaturated Iron Binding 236 g/dL Total Iron Binding Capacity 333 g/dL Normal 250-450 Transferrin 238 mg/dL Normal 203-362 % Iron Saturation 29 % Normal 15-55 Laboratory test 05/29/2017 [facility] Smooth Muscle Negative Negative 143 finding [address] [place] [address] [phone] Nuclear AB (Chapis) By Ifa Igg <1:80 (Negative) 144 Laboratory test 05/27/2017 [facility] Valproic Acid 32.0 Low 50-100 [address] (Depakene) g/mL [place], [place] [address] [phone] Hepatitis C Antibody Nonreactive Nonreactive Lipid Profile 05/27/2017 [facility] Triglycerides 55 mg/dL 146 (Trig/Chol/HDL) [address] [place] [address] [phone] Cholesterol 153 mg/dL 147 HDL Cholesterol 53.1 mg/dL 148 LDL Cholesterol 89 mg/dL 149 Comp Metabolic 05/27/2017 [facility] Sodium 137 mmol/L Normal 133-145 Panel [address] [place] [address] [phone] Potassium 3.3 mmol/L Low 3.5-5.0 Chloride 104 mmol/L Normal 101-111 Co2 Carbon Dioxide 27 mmol/L Normal 22-32 Anion Gap 6 mmol/L Normal 2-11 Glucose 111 mg/dL High 70-100 Blood Urea Nitrogen 13 mg/dL Normal 6-24 Creatinine 0.56 mg/dL Normal 0.51-0.95 BUN/Creatinine Ratio 23.2 High 8-20 Calcium 9.2 mg/dL Normal 8.6-10.3 Total Protein 6.8 g/dL Normal 6.4-8.9 Albumin 4.2 g/dL Normal 3.2-5.2 Globulin 2.6 g/dL Normal 2-4 Albumin/Globulin Ratio 1.6 Normal 1-3 Total Bilirubin 0.40 mg/dL Normal 0.2-1.0 Alkaline Phosphatase 106 U/L High 34-104 Alt 152 U/L High 7-52 Ast 101 U/L High 13-39 Egfr Non- 125.5 >60 Egfr 161.3 >60 150 Laboratory test 05/27/2017 [facility] Uric Acid 3.9 mg/dL Normal 2.3-6.[address] [place] [address] [phone] C Reactive Protein 2.45 mg/L Normal < 5.00 151 CBC Auto 05/27/2017 [facility] White Blood 3.6 10^3/uL Normal 3.5-10.[address] [place] [address] [phone] Red Blood Count 3.98 10^6/uL Low 4.0-5.4 Hemoglobin 12.5 g/dL Normal 12.0-16.0 Hematocrit 35 % Normal 35-47 Mean Corpuscular Volume 89 fL Normal 80-97 Mean Corpuscular Hemoglobin 31 pg Normal 27-31 Mean Corpuscular HGB Conc 35 g/dL Normal 31-36 Red Cell Distribution Width 13 % Normal 10.5-15 Platelet Count 247 10^3/uL Normal 150-450 Mean Platelet Volume 8 um3 Normal 7.4-10.4 Abs Neutrophils 1.0 10^3/uL Low 1.5-7.7 Abs Lymphocytes 2.1 10^3/uL Normal 1.0-4.8 Abs Monocytes 0.3 10^3/uL Normal 0-0.8 Abs Eosinophils 0.2 10^3/uL Normal 0-0.6 Abs Basophils 0 10^3/uL Normal 0-0.2 Abs Nucleated RBC 0 10^3/uL Granulocyte % 27.8 % Low 38-83 Lymphocyte % 58.6 % High 25-47 Monocyte % 8.1 % High 0-7 Eosinophil % 5.0 % Normal 0-6 Basophil % 0.5 % Normal 0-2 Nucleated Red Blood Cells % 0.1 Laboratory test 05/27/2017 [facility] Erythrocyte Sed 18 mm/Hr High 0-[address] [place] [address] [phone] Blood Culture SEE RESULT BELOW 152 Laboratory test 05/27/2017 [facility] Lyme Disease Negative Negative [address] [place] [address] [phone] Uric Acid 3.7 mg/dL Normal 2.3-6.6 154 Erythrocyte Sed Rate 17 mm/Hr High 0-14 CBC Auto 05/27/2017 [facility] White Blood 2.7 10^3/uL Low 3.5 -10.[address] [place] [address] [phone] Red Blood Count 4.16 10^6/uL Normal 4.0-5.4 Hemoglobin 13.1 g/dL Normal 12.0-16.0 Hematocrit 37 % Normal 35-47 Mean Corpuscular Volume 89 fL Normal 80-97 Mean Corpuscular Hemoglobin 32 pg High 27-31 Mean Corpuscular HGB Conc 36 g/dL Normal 31-36 Red Cell Distribution Width 13 % Normal 10.5-15 Platelet Count 249 10^3/uL Normal 150-450 Mean Platelet Volume 8 um3 Normal 7.4-10.4 Abs Neutrophils 0.9 10^3/uL Critical low 1.5-7.7 155 Abs Lymphocytes 1.4 10^3/uL Normal 1.0-4.8 Abs Monocytes 0.2 10^3/uL Normal 0-0.8 Abs Eosinophils 0.1 10^3/uL Normal 0-0.6 Abs Basophils 0 10^3/uL Normal 0-0.2 Abs Nucleated RBC 0 10^3/uL Granulocyte % 33.0 % Low 38-83 Lymphocyte % 51.6 % High 25-47 Monocyte % 9.4 % High 0-7 Eosinophil % 5.5 % Normal 0-6 Basophil % 0.5 % Normal 0-2 Nucleated Red Blood Cells % 0 Laboratory test 05/27/2017 [facility] Pathologist (SEE [address] Review NOTE) [place] [address] [phone] Comp Metabolic 05/27/2017 [facility] Sodium 137 Normal 133- Panel [address] mmol/L 145 [place] [address] [phone] Potassium 4.1 mmol/L Normal 3.5-5.0 Chloride 104 mmol/L Normal 101-111 Co2 Carbon Dioxide 28 mmol/L Normal 22-32 Anion Gap 5 mmol/L Normal 2-11 Glucose 84 mg/dL Normal 70-100 Blood Urea Nitrogen 11 mg/dL Normal 6-24 Creatinine 0.55 mg/dL Normal 0.51-0.95 BUN/Creatinine Ratio 20.0 Normal 8-20 Calcium 9.1 mg/dL Normal 8.6-10.3 Total Protein 7.0 g/dL Normal 6.4-8.9 Albumin 4.3 g/dL Normal 3.2-5.2 Globulin 2.7 g/dL Normal 2-4 Albumin/Globulin Ratio 1.6 Normal 1-3 Total Bilirubin 0.70 mg/dL Normal 0.2-1.0 Alkaline Phosphatase 135 U/L High 34-104 Alt 198 U/L High 7-52 Ast 151 U/L High 13-39 Egfr Non- 128.1 >60 Egfr 164.7 >60 157 THC Confirmation 05/15/2017 [facility] Urine Carboxy 53 ng/mL 158, [address] [place] [address] [phone] Urine THC Interpretation Positive. 160 Drug Abuse 05/15/2017 [facility] Urine Amphetamine Negative ng/ mL 161 [address] [place] [address] [phone] Urine Barbiturates Negative ng/mL 162 Urine Benzodiazepines Negative ng/mL 163 Urine Cocaine Negative ng/mL 164 Urine Phencyclidine Negative ng/mL Cutoff: 25 Urine Tetrahydrocannabinol Presumptive Posi <SEE NOTE> Abnormal Cutoff: 50 165 ng/mL Creatinine, Urine 124.3 mg/dL Specific [place] 1.011 pH 7.3 Oxidants Negative 166 Adulterants Comment Normal Codeine, Ur Not Detected ng/mL Cutoff: 25 167 Ulslpao-4-kcip-glucuronide, Ur Not Detected ng/mL 168 Morphine, Ur Not Detected ng/mL Cutoff: 25 169 Nqmxfxpu-8-facn-glucuronide, U Not Detected ng/mL 170 6-monoacetylmorphine, Ur Not Detected ng/mL Cutoff: 25 171 Hydrocodone, Ur Not Detected ng/mL Cutoff: 25 172 Norhydrocodone, Ur Not Detected ng/mL Cutoff: 25 173 Dihydrocodeine, Ur Not Detected ng/mL Cutoff: 25 174 Hydromorphone, Ur Not Detected ng/mL Cutoff: 25 175 Ekfsrztziedqc2lqhcgsktqatqdhl Not Detected ng/mL 176 Oxycodone, Ur Not Detected ng/mL Cutoff: 25 177 Noroxycodone, Ur Not Detected ng/mL Cutoff: 25 178 Oxymorphone, Ur Not Detected ng/mL Cutoff: 25 179 Mxemgruuoeu-3-srev-glucuronide Not Detected ng/mL 180 Noroxymorphone, Ur Not Detected ng/mL Cutoff: 25 181 Fentanyl, Ur Not Detected ng/mL Cutoff: 2 182 Norfentanyl, Ur Not Detected ng/mL Cutoff: 2 183 Meperidine, Ur Not Detected ng/mL Cutoff: 25 184 Normeperidine, Ur Not Detected ng/mL Cutoff: 25 185 Naloxone, Ur Not Detected ng/mL Cutoff: 25 186 Chednaai-7-wxrb-glucuronide, U Present ng/mL Abnormal 187 Methadone, Ur Not Detected ng/mL Cutoff: 25 188 Eddp, Ur Not Detected ng/mL Cutoff: 25 189 Propoxyphene, Ur Not Detected ng/mL Cutoff: 25 190 Norpropoxyphene, Ur Not Detected ng/mL Cutoff: 25 191 Tramadol, Ur Not Detected ng/mL Cutoff: 25 192 O-desmethyltramadol, Ur Not Detected ng/mL Cutoff: 25 193 Tapentadol, Ur Not Detected ng/mL Cutoff: 25 194 N-desmethyltapentadol, Ur Not Detected ng/mL Cutoff: 50 195 Crkmgzeybh-miwa-ifsjktdbdvu, U Not Detected ng/mL 196 Buprenorphine, Ur Not Detected ng/mL Cutoff: 5 197 Norbuprenorphine, Ur Present ng/mL Abnormal Cutoff: 5 198 Norbuprenorphine glucuronide Present ng/mL Abnormal Cutoff: 20 199 Opioid Interpretation See Comment 200 THC Confirmation 03/04/2017 [facility] Urine Carboxy 182 ng/mL 201, [address] [place] [address] [phone] Urine THC Interpretation Positive. 203 Benzodiazepine 03/04/2017 [facility] Urine Negative 204 Confirm Urine [address] Lorazepam ng/[place] [address] GC/MS [phone] Urine Nordiazepam GC/MS Negative ng/mL 205 Urine Oxazepam GC/MS Negative ng/mL 206 Urine Temazepam GC/MS Negative ng/mL 207 Ur Oh Ethyl Flurazepam GC/MS Negative ng/mL 208 Ur 7 [place] Clonazepam GC/MS 602 ng/mL 209 Ur 7 NH Flunitrazepam GC/MS Negative ng/mL Cutoff: 50 Ur Alpha Oh Alprazolam GC/MS Negative ng/mL 210 Ur Alpha Oh Triazolam GC/MS Negative ng/mL 211 Ur Benzodiazepine Interp Positive. 212 Drug Abuse 03/04/2017 [facility] Urine Amphetamine Negative ng/ mL 213 [address] [place] [address] [phone] Urine Barbiturates Negative ng/mL 214 Urine Benzodiazepines Presumptive Posi <SEE NOTE> ng/mL 215 Urine Cocaine Negative ng/mL 216 Urine Phencyclidine Negative ng/mL Cutoff: 25 Urine Tetrahydrocannabinol Presumptive Posi <SEE NOTE> ng/mL Cutoff: 50 217 Creatinine, Urine 127.5 mg/dL Specific [place] 1.019 pH 6.0 Oxidants Negative 218 Adulterants Comment Normal Codeine, Ur Not Detected ng/mL Cutoff: 25 219 Cflyqsg-2-bcjq-glucuronide, Ur Not Detected ng/mL 220 Morphine, Ur Not Detected ng/mL Cutoff: 25 221 Teidstmp-3-uhci-glucuronide, U Not Detected ng/mL 222 6-monoacetylmorphine, Ur Not Detected ng/mL Cutoff: 25 223 Hydrocodone, Ur Not Detected ng/mL Cutoff: 25 224 Norhydrocodone, Ur Not Detected ng/mL Cutoff: 25 225 Dihydrocodeine, Ur Not Detected ng/mL Cutoff: 25 226 Hydromorphone, Ur Not Detected ng/mL Cutoff: 25 227 Qgfhflqbubrrt1dhmvpysybhvgycy Not Detected ng/mL 228 Oxycodone, Ur Not Detected ng/mL Cutoff: 25 229 Noroxycodone, Ur Not Detected ng/mL Cutoff: 25 230 Oxymorphone, Ur Not Detected ng/mL Cutoff: 25 231 Eobupowfybk-6-hhys-glucuronide Not Detected ng/mL 232 Noroxymorphone, Ur Present ng/mL Cutoff: 25 233 Fentanyl, Ur Not Detected ng/mL Cutoff: 2 234 Norfentanyl, Ur Not Detected ng/mL Cutoff: 2 235 Meperidine, Ur Not Detected ng/mL Cutoff: 25 236 Normeperidine, Ur Not Detected ng/mL Cutoff: 25 237 Naloxone, Ur Not Detected ng/mL Cutoff: 25 238 Ugrbyhsc-9-ohoz-glucuronide, U Present ng/mL 239 Methadone, Ur Not Detected ng/mL Cutoff: 25 240 Eddp, Ur Not Detected ng/mL Cutoff: 25 241 Propoxyphene, Ur Not Detected ng/mL Cutoff: 25 242 Norpropoxyphene, Ur Not Detected ng/mL Cutoff: 25 243 Tramadol, Ur Not Detected ng/mL Cutoff: 25 244 O-desmethyltramadol, Ur Not Detected ng/mL Cutoff: 25 245 Tapentadol, Ur Not Detected ng/mL Cutoff: 25 246 N-desmethyltapentadol, Ur Not Detected ng/mL Cutoff: 50 247 Vbheclfpet-uhit-lefurzgobop, U Not Detected ng/mL 248 Buprenorphine, Ur Present ng/mL Cutoff: 5 249 Norbuprenorphine, Ur Present ng/mL Cutoff: 5 250 Norbuprenorphine glucuronide Present ng/mL Cutoff: 20 251 Opioid Interpretation See Comment 252 1 Because ethnic data is not always readily available, this report includes an eGFR for both -Americans and non- Americans. The National Kidney Disease Education Program (NKDEP) does not endorse the use of the MDRD equation for patients that are not between the ages of 18 and 70, are , have extremes of body size, muscle mass, or nutritional status, or are non- or non-. According to the National Kidney Foundation, irrespective of diagnosis, the stage of the disease is based on the level of kidney function: Stage Description GFR(mL/min/1.73 m(2)) 1 Kidney damage with normal or decreased GFR 90 2 Kidney damage with mild decrease in GFR 60-89 3 Moderate decrease in GFR 30-59 4 Severe decrease in GFR 15-29 5 Kidney failure <15 (or dialysis) 2 Therapeutic target for the treatment of diabetes mellitus patients is <7% HBA1C, and in selective patients <6.0%. Please refer to [place] [employer] diabetic care guidelines for further information. 3 Desirable: <150 Borderline High: 150-199 High: 200-499 Very High: >500 4 Desirable: <200 Borderline High: 200-239 High: >239 5 Low: <40 Desirable: 40-60 High: >60 6 Desirable: <100 Near Optimal: 100-129 Borderline High: 130-159 High: 160-189 Very High: >189 7 PT IS NOT FASTING 8 [id number] REFERENCE VALUE Cutoff: 500 10 REFERENCE VALUE Cutoff: 200 11 REFERENCE VALUE Cutoff: 100 12 REFERENCE VALUE Cutoff: 150 13 Presumptive Positive Drug confirmation to follow. Presumptive Positive means that the screening method is positive, but the test needs to be run by a confirmatory method before being finalized. ADDITIONAL INFORMATION This report is intended for use in clinical monitoring or management of patients. It is not intended for use in employment-related testing. 14 REFERENCE VALUE Cutoff: 200 mg/L 15 Tylenol 3 16 Metabolite of codeine REFERENCE VALUE Cutoff: 100 17 Siri Moss, Contin; Also a minor metabolite (10%) of codeine and can be seen in low concentrations (<2,000 ng/mL) with poppy seed ingestion. 18 Metabolite of morphine REFERENCE VALUE Cutoff: 100 19 Metabolite of heroin 20 Lortab, Teller, Vicodin; Also a very minor metabolite of codeine and impurity (<1%) of oxycodone. 21 Metabolite of hydrocodone 22 Metabolite of hydrocodone 23 Dilaudid, Exalgo; Also a metabolite of hydrocodone and a minor (<5%) metabolite of morphine. 24 Metabolite of hydromorphone REFERENCE VALUE Cutoff: 100 25 Endocet, Percocet, Oxycontin 26 Metabolite of oxycodone 27 Numorphan, Opana; Also a metabolite of oxycodone. 28 Metabolite of oxymorphone REFERENCE VALUE Cutoff: 100 29 Metabolite of oxymorphone 30 Actiq, Duragesic, Fentora 31 Metabolite of fentanyl 32 Demerol 33 Metabolite of meperidine 34 Narcan 35 Metabolite of naloxone REFERENCE VALUE Cutoff: 100 36 Dolophine 37 Metabolite of methadone 38 Darvon, Darvocet 39 Metabolite of propoxyphene 40 Tradol, Ultram, Ultracet 41 Metabolite of tramadol 42 Nucynta 43 Metabolite of tapentadol 44 Metabolite of tapentadol REFERENCE VALUE Cutoff: 100 45 Buprenex, Suboxone 46 Metabolite of buprenorphine 47 Metabolite of buprenorphine 48 Test detected the presence of buprenorphine and its metabolites (norbuprenorphine and norbuprenorphine glucuronide) along with naloxone metabolites (crljstkr-1-vzjp-glucuronide and noroxymorphone/nornaloxone). Suspect use of buprenorphine with naloxone (e.g. Suboxone) within the past three days. ADDITIONAL INFORMATION This test was developed and its performance characteristics determined by [facility] in a manner consistent with CLIA requirements. This test has not been cleared or approved by the U.S. Food and Drug Administration. Test Performed by: [facility] [address] [place] [id number] 49 REFERENCE VALUE Cutoff: 3.0 50 ADDITIONAL INFORMATION This report is intended for use in clinical monitoring and management of patients. It is not intended for use in employment-related testing. This test was developed and its performance characteristics determined by [facility] in a manner consistent with CLIA requirements. This test has not been cleared or approved by the U.S. Food and Drug Administration. Test Performed by: [facility] [address] [place] [id number] REFERENCE VALUE Cutoff: 500 53 REFERENCE VALUE Cutoff: 200 54 REFERENCE VALUE Cutoff: 100 55 REFERENCE VALUE Cutoff: 150 56 Presumptive Positive Drug confirmation to follow. Presumptive Positive means that the screening method is positive, but the test needs to be run by a confirmatory method before being finalized. ADDITIONAL INFORMATION This report is intended for use in clinical monitoring or management of patients. It is not intended for use in employment-related testing. 57 REFERENCE VALUE Cutoff: 200 mg/L 58 Tylenol 3 59 Metabolite of codeine REFERENCE VALUE Cutoff: 100 60 Siri Moss MS Contin; Also a minor metabolite (10%) of codeine and can be seen in low concentrations (<2,000 ng/mL) with poppy seed ingestion. 61 Metabolite of morphine REFERENCE VALUE Cutoff: 100 62 Metabolite of heroin 63 Lortab, Teller, Vicodin; Also a very minor metabolite of codeine and impurity (<1%) of oxycodone. 64 Metabolite of hydrocodone 65 Metabolite of hydrocodone 66 Dilaudid, Exalgo; Also a metabolite of hydrocodone and a minor (<5%) metabolite of morphine. 67 Metabolite of hydromorphone REFERENCE VALUE Cutoff: 100 68 Endocet, Percocet, Oxycontin 69 Metabolite of oxycodone 70 Numorphan, Opana; Also a metabolite of oxycodone. 71 Metabolite of oxymorphone REFERENCE VALUE Cutoff: 100 72 Metabolite of oxymorphone 73 Actiq, Duragesic, Fentora 74 Metabolite of fentanyl 75 Demerol 76 Metabolite of meperidine 77 Narcan 78 Metabolite of naloxone REFERENCE VALUE Cutoff: 100 79 Dolophine 80 Metabolite of methadone 81 Darvon, Darvocet 82 Metabolite of propoxyphene 83 Tradol, Ultram, Ultracet 84 Metabolite of tramadol 85 Nucynta 86 Metabolite of tapentadol 87 Metabolite of tapentadol REFERENCE VALUE Cutoff: 100 88 Buprenex, Suboxone 89 Metabolite of buprenorphine 90 Metabolite of buprenorphine 91 Test detected the presence of buprenorphine and its metabolites (norbuprenorphine and norbuprenorphine glucuronide) along with naloxone metabolite (ajfxhwyj-8-kvhc-glucuronide). Suspect use of buprenorphine with naloxone (e.g. Suboxone) within the past three days. ADDITIONAL INFORMATION This test was developed and its performance characteristics determined by [facility] in a manner consistent with CLIA requirements. This test has not been cleared or approved by the U.S. Food and Drug Administration. Test Performed by: [facility] - [address] [address] 92 REFERENCE VALUE Cutoff: 3.0 93 ADDITIONAL INFORMATION This report is intended for use in clinical monitoring and management of patients. It is not intended for use in employment-related testing. This test was developed and its performance characteristics determined by [facility] in a manner consistent with CLIA requirements. This test has not been cleared or approved by the U.S. Food and Drug Administration. Test Performed by: [facility] - [address] [address] 94 Because ethnic data is not always readily available, this report includes an eGFR for both -Americans and non- Americans. The National Kidney Disease Education Program (NKDEP) does not endorse the use of the MDRD equation for patients that are not between the ages of 18 and 70, are , have extremes of body size, muscle mass, or nutritional status, or are non- or non-. According to the National Kidney Foundation, irrespective of diagnosis, the stage of the disease is based on the level of kidney function: Stage Description GFR(mL/min/1.73 m(2)) 1 Kidney damage with normal or decreased GFR 90 2 Kidney damage with mild decrease in GFR 60-89 3 Moderate decrease in GFR 30-59 4 Severe decrease in GFR 15-29 5 Kidney failure <15 (or dialysis) 95 Normal Range 180 to 914 Indeterminate Range 145 to 180 Deficient Range <145 96 REFERENCE VALUE Cutoff: 500 97 REFERENCE VALUE Cutoff: 200 98 REFERENCE VALUE Cutoff: 100 99 REFERENCE VALUE Cutoff: 150 100 Presumptive Positive Drug confirmation to follow. Presumptive Positive means that the screening method is positive, but the test needs to be run by a confirmatory method before being finalized. ADDITIONAL INFORMATION This report is intended for use in clinical monitoring or management of patients. It is not intended for use in employment-related testing. 101 REFERENCE VALUE Cutoff: 200 mg/L 102 Tylenol 3 103 Metabolite of codeine REFERENCE VALUE Cutoff: 100 104 Siri Moss, Contin; Also a minor metabolite (10%) of codeine and can be seen in low concentrations (<2,000 ng/mL) with poppy seed ingestion. 105 Metabolite of morphine REFERENCE VALUE Cutoff: 100 106 Metabolite of heroin 107 Lortab, Teller, Vicodin; Also a very minor metabolite of codeine and impurity (<1%) of oxycodone. 108 Metabolite of hydrocodone 109 Metabolite of hydrocodone 110 Dilaudid, Exalgo; Also a metabolite of hydrocodone and a minor (<5%) metabolite of morphine. 111 Metabolite of hydromorphone REFERENCE VALUE Cutoff: 100 112 Endocet, Percocet, Oxycontin 113 Metabolite of oxycodone 114 Numorphan, Opana; Also a metabolite of oxycodone. 115 Metabolite of oxymorphone REFERENCE VALUE Cutoff: 100 116 Metabolite of oxymorphone 117 Actiq, Duragesic, Fentora 118 Metabolite of fentanyl 119 Demerol 120 Metabolite of meperidine 121 Narcan 122 Metabolite of naloxone REFERENCE VALUE Cutoff: 100 123 Dolophine 124 Metabolite of methadone 125 Darvon, Darvocet 126 Metabolite of propoxyphene 127 Tradol, Ultram, Ultracet 128 Metabolite of tramadol 129 Nucynta 130 Metabolite of tapentadol 131 Metabolite of tapentadol REFERENCE VALUE Cutoff: 100 132 Buprenex, Suboxone 133 Metabolite of buprenorphine 134 Metabolite of buprenorphine 135 Test detected the presence of buprenorphine and its metabolites (norbuprenorphine and norbuprenorphine glucuronide) along with naloxone and its metabolites (oqfwqtpy-9-lgpy-glucuronide and noroxymorphone/nornaloxone). Suspect use of buprenorphine with naloxone (e.g. Suboxone) within the past three days. ADDITIONAL INFORMATION This test was developed and its performance characteristics determined by [facility] in a manner consistent with CLIA requirements. This test has not been cleared or approved by the U.S. Food and Drug Administration. Test Performed by: [facility] - [address] [address] 136 REFERENCE VALUE Cutoff: 3.0 137 ADDITIONAL INFORMATION This report is intended for use in clinical monitoring and management of patients. It is not intended for use in employment-related testing. This test was developed and its performance characteristics determined by [facility] in a manner consistent with CLIA requirements. This test has not been cleared or approved by the U.S. Food and Drug Administration. Test Performed by: [facility] - [address] [address] 138 SEE RESULT BELOW Name: JOSSY SUTTON Morena : [address]: Delano Sue NP Acct: [id number] Unit: [id number] AGE: 32 Location: [facility] Re06/18/17 SEX: F Status: REG REF SPEC: [id number] PRACHI: 06/18/17-0[address] [facility] [address]: Delano Sue NP REQ: [id number] RECD: 06/18/17-113 STATUS: SOUT _ ORDERED: TP IMAGE ANAL COMMENTS: [id number] Negative for Intraepithelial lesion or Malignancy A. Ectocervical/Endocervical Specimen Adequacy: Satisfactory of evaluation Transformation zone component identified Patient Information: HPV: Thin Layer Pap Test w/reflex to high risk HPV RNA testing when ASCUS Actual Specimen Date: 06/18/17 LMP If Unknown: 30 days ago ?: N Post Menopausal?: N Hysterectomy?: N Previous Abnormal Pap Smears?:Y If Yes, enter Diagnosis: Colposcopy, about 8 yrs ago Signed (signature on file) JEB Villar (ASCP) 06/19 1431 This Pap test was evaluated with the assistance of the [employer] System. Due to cytologic findings at the content production specialist microscope, comprehensive manual rescreening by a Facilities And Grounds Director may be required. The Pap Smear is a screening test designed to aid in the detection of premalignant and malignant conditions of the uterine cervix. It is not a diagnostic procedure and should not be used as the sole means of detecting cervical cancer. Both false- positive and false- negative reports do occur. Depending on your risk status, a Pap smear should be obtained and evaluated every 1-3 years. END OF REPORT DEPARTMENT OF PATHOLOGY, [address] [place] [address] Slava Galaviz M.D. Director [facility] # [id number] 139 It is recognized that currently available assays for the detection of antibodies to HIV-1 and/or HIV-2 may not detect all infected individuals. HIV antibodies may be undetectable in some stages of the infection and in some clinical conditions. The performance of this assay has not been established for populations of infants or children. Assayed by Chemiluminescence Microparticle Immunoassay on the Siemens Advia Centaur CP. Values obtained with different methods or kits cannot be used interchangeably.The diagnostic specificity of the ADVIA Centaur 1/O/2 Enhanced assay in the low risk population was 99.90% (6052/6058) with a 95% confidence interval of 99.78 to 99.96%. 140 Because ethnic data is not always readily available, this report includes an eGFR for both -Americans and non- Americans. The National Kidney Disease Education Program (NKDEP) does not endorse the use of the MDRD equation for patients that are not between the ages of 18 and 70, are , have extremes of body size, muscle mass, or nutritional status, or are non- or non-. According to the National Kidney Foundation, irrespective of diagnosis, the stage of the disease is based on the level of kidney function: Stage Description GFR(mL/min/1.73 m(2)) 1 Kidney damage with normal or decreased GFR 90 2 Kidney damage with mild decrease in GFR 60-89 3 Moderate decrease in GFR 30-59 4 Severe decrease in GFR 15-29 5 Kidney failure <15 (or dialysis) 141 Test Performed by: [facility] [address] [place] [id number] 142 Result indicates no past exposure or immunity to hepatitis A infection. REFERENCE VALUE Unvaccinated: Negative Vaccinated: Positive Test Performed by: [facility] [address] [place] [id number] 143 ADDITIONAL INFORMATION This test was developed and its performance characteristics determined by [facility] in a manner consistent with CLIA requirements. This test has not been cleared or approved by the U.S. Food and Drug Administration. Test Performed by: [facility] [address] [place] [address] 144 <1:80 (Negative) REFERENCE VALUE <1:80 (Negative) Test Performed by: [facility] [address] [place] [address] 145 FASTING 146 Desirable: <150 Borderline High: 150-199 High: 200-499 Very High: >500 147 Desirable: <200 Borderline High: 200-239 High: >239 148 Low: <40 Desirable: 40-60 High: >60 149 Desirable: <100 Near Optimal: 100-129 Borderline High: 130-159 High: 160-189 Very High: >189 150 Because ethnic data is not always readily available, this report includes an eGFR for both -Americans and non- Americans. The National Kidney Disease Education Program (NKDEP) does not endorse the use of the MDRD equation for patients that are not between the ages of 18 and 70, are , have extremes of body size, muscle mass, or nutritional status, or are non- or non-. According to the National Kidney Foundation, irrespective of diagnosis, the stage of the disease is based on the level of kidney function: Stage Description GFR(mL/min/1.73 m(2)) 1 Kidney damage with normal or decreased GFR 90 2 Kidney damage with mild decrease in GFR 60-89 3 Moderate decrease in GFR 30-59 4 Severe decrease in GFR 15-29 5 Kidney failure <15 (or dialysis) 151 Acute inflammation: >10.00 152 SEE RESULT BELOW Name: GOPALJOSSY BUCKLEY Morena : [address]: Alan Jimenez MD Acct: [id number] Unit: [id number] AGE: 32 Location: ED Re05/27/17 SEX: F Status: DEP ER SPEC: [id number] PRACHI: 05/27/[address]: Alan Jimenez MD REQ: [id number] RECD: 05/27/17 STATUS: RES JAIMEHR DR: Charly Jason MD _ SOURCE: BLOOD,VENO SPDES: ORDERED: Blood Cult Procedure Result Reported Site Aerobic Culture Bottle Preliminary 05/31/17- 1623 ML No Growth Day 4 Anaerobic Culture Bottle Final 06/01/17- 1623 ML No Growth Day 5 * ML - Main Lab . END OF REPORT DEPARTMENT OF PATHOLOGY, [address] [place] [id number] Slava Galaviz M.D. Director [facility] # [id number] 153 Serologic response to B. burgdorferi infection is not detected, but cannot rule out early infection during which low or undetectable antibody levels to B. burgdorferi may be present. If clinically indicated, a new serum specimen should be submitted in 7-14 days. Test Performed by: [facility] [address] [place] [address] 154 FASTING 155 Verbal to [ORIANA/EZEQUIEL] by [[id number]] at [[id number]] on [05/27/17].Results read back accurately 156 Severe neutropenia noted. No blasts are seen. Additional studies as clinically warranted. Reviewed by Dr. Galaviz 157 Because ethnic data is not always readily available, this report includes an eGFR for both -Americans and non- Americans. The National Kidney Disease Education Program (NKDEP) does not endorse the use of the MDRD equation for patients that are not between the ages of 18 and 70, are , have extremes of body size, muscle mass, or nutritional status, or are non- or non-. According to the National Kidney Foundation, irrespective of diagnosis, the stage of the disease is based on the level of kidney function: Stage Description GFR(mL/min/1.73 m(2)) 1 Kidney damage with normal or decreased GFR 90 2 Kidney damage with mild decrease in GFR 60-89 3 Moderate decrease in GFR 30-59 4 Severe decrease in GFR 15-29 5 Kidney failure <15 (or dialysis) 158 [id number] 159 REFERENCE VALUE Cutoff: 3.0 160 ADDITIONAL INFORMATION This report is intended for use in clinical monitoring and management of patients. It is not intended for use in employment-related testing. This test was developed and its performance characteristics determined by [facility] in a manner consistent with CLIA requirements. This test has not been cleared or approved by the U.S. Food and Drug Administration. Test Performed by: [facility] [address] [place] [address] 161 REFERENCE VALUE Cutoff: 500 162 REFERENCE VALUE Cutoff: 200 163 REFERENCE VALUE Cutoff: 100 164 REFERENCE VALUE Cutoff: 150 165 Presumptive Positive Drug confirmation to follow. Presumptive Positive means that the screening method is positive, but the test needs to be run by a confirmatory method before being finalized. ADDITIONAL INFORMATION This report is intended for use in clinical monitoring or management of patients. It is not intended for use in employment-related testing. 166 REFERENCE VALUE Cutoff: 200 mg/L 167 Tylenol 3 168 Metabolite of codeine REFERENCE VALUE Cutoff: 100 169 Siri Moss, Contin; Also a minor metabolite (10%) of codeine and can be seen in low concentrations (<2,000 ng/mL) with poppy seed ingestion. 170 Metabolite of morphine REFERENCE VALUE Cutoff: 100 171 Metabolite of heroin 172 Lortab, Teller, Vicodin; Also a very minor metabolite of codeine and impurity (<1%) of oxycodone. 173 Metabolite of hydrocodone 174 Metabolite of hydrocodone 175 Dilaudid, Exalgo; Also a metabolite of hydrocodone and a minor (<5%) metabolite of morphine. 176 Metabolite of hydromorphone REFERENCE VALUE Cutoff: 100 177 Endocet, Percocet, Oxycontin 178 Metabolite of oxycodone 179 Numorphan, Opana; Also a metabolite of oxycodone. 180 Metabolite of oxymorphone REFERENCE VALUE Cutoff: 100 181 Metabolite of oxymorphone 182 Actiq, Duragesic, Fentora 183 Metabolite of fentanyl 184 Demerol 185 Metabolite of meperidine 186 Narcan 187 Metabolite of naloxone REFERENCE VALUE Cutoff: 100 188 Dolophine 189 Metabolite of methadone 190 Darvon, Darvocet 191 Metabolite of propoxyphene 192 Tradol, Ultram, Ultracet 193 Metabolite of tramadol 194 Nucynta 195 Metabolite of tapentadol 196 Metabolite of tapentadol REFERENCE VALUE Cutoff: 100 197 Buprenex, Suboxone 198 Metabolite of buprenorphine 199 Metabolite of buprenorphine 200 Test detected the presence of norbuprenorphine and norbuprenorphine glucuronide which are metabolites of buprenorphine. Suspect use of buprenorphine within the past three days. Test detected the presence of btroklwn-5-ehac-glucuronide (metabolite of naloxone) only. Suspect use of naloxone (Narcan) within the past three days. ADDITIONAL INFORMATION This test was developed and its performance characteristics determined by [facility] in a manner consistent with CLIA requirements. This test has not been cleared or approved by the U.S. Food and Drug Administration. Test Performed by: [facility] [employer] [facility] [employer] [address] [place] [phone].[id number] 202 REFERENCE VALUE Cutoff: 3.0 203 ADDITIONAL INFORMATION This report is intended for use in clinical monitoring and management of patients. It is not intended for use in employment-related testing. This test was developed and its performance characteristics determined by [facility] in a manner consistent with CLIA requirements. This test has not been cleared or approved by the U.S. Food and Drug Administration. Test Performed by: [facility] [employer] [address] [place] [id number] 204 REFERENCE VALUE Cutoff: 100 205 REFERENCE VALUE Cutoff: 100 206 REFERENCE VALUE Cutoff: 100 207 REFERENCE VALUE Cutoff: 100 208 REFERENCE VALUE Cutoff: 100 209 REFERENCE VALUE Cutoff: 100 210 REFERENCE VALUE Cutoff: 100 211 REFERENCE VALUE Cutoff: 100 212 ADDITIONAL INFORMATION This report is intended for use in clinical monitoring and management of patients. It is not intended for use in employment-related testing. This test was developed and its performance characteristics determined by [facility] in a manner consistent with CLIA requirements. This test has not been cleared or approved by the U.S. Food and Drug Administration. Test Performed by: [facility] [address] [place] [address] 213 REFERENCE VALUE Cutoff: 500 214 REFERENCE VALUE Cutoff: 200 215 Presumptive Positive Drug confirmation to follow. Presumptive Positive means that the screening method is positive, but the test needs to be run by a confirmatory method before being finalized. REFERENCE VALUE Cutoff: 100 216 REFERENCE VALUE Cutoff: 150 217 Presumptive Positive Drug confirmation to follow. Presumptive Positive means that the screening method is positive, but the test needs to be run by a confirmatory method before being finalized. ADDITIONAL INFORMATION This report is intended for use in clinical monitoring or management of patients. It is not intended for use in employment-related testing. 218 REFERENCE VALUE Cutoff: 200 mg/L 219 Tylenol 3 220 Metabolite of codeine REFERENCE VALUE Cutoff: 100 221 Siri Moss MS Contin; Also a minor metabolite (10%) of codeine and can be seen in low concentrations (<2,000 ng/mL) with poppy seed ingestion. 222 Metabolite of morphine REFERENCE VALUE Cutoff: 100 223 Metabolite of heroin 224 Lortab, Teller, Vicodin; Also a very minor metabolite of codeine and impurity (<1%) of oxycodone. 225 Metabolite of hydrocodone 226 Metabolite of hydrocodone 227 Dilaudid, Exalgo; Also a metabolite of hydrocodone and a minor (<5%) metabolite of morphine. 228 Metabolite of hydromorphone REFERENCE VALUE Cutoff: 100 229 Endocet, Percocet, Oxycontin 230 Metabolite of oxycodone 231 Numorphan, Opana; Also a metabolite of oxycodone. 232 Metabolite of oxymorphone REFERENCE VALUE Cutoff: 100 233 Metabolite of oxymorphone 234 Actiq, Duragesic, Fentora 235 Metabolite of fentanyl 236 Demerol 237 Metabolite of meperidine 238 Narcan 239 Metabolite of naloxone REFERENCE VALUE Cutoff: 100 240 Dolophine 241 Metabolite of methadone 242 Darvon, Darvocet 243 Metabolite of propoxyphene 244 Tradol, Ultram, Ultracet 245 Metabolite of tramadol 246 Nucynta 247 Metabolite of tapentadol 248 Metabolite of tapentadol REFERENCE VALUE Cutoff: 100 249 Buprenex, Suboxone 250 Metabolite of buprenorphine 251 Metabolite of buprenorphine 252 Test detected the presence of noroxymorphone (metabolite of oxymorphone). Suspect use of oxymorphone within the past three days. Noroxymorphone can also be a metabolite of naloxone (nornaloxone). If present with naloxone and/or hokvjzca-1-jtev-glucuronide, the results are consistent with use of naloxone (Narcan) within the past three days. Test detected the presence of buprenorphine and its metabolites (norbuprenorphine, norbuprenorphine glucuronide). Suspect use of buprenorphine within the past three days. Test detected the presence of mtyjqfix-7-sptt-glucuronide (metabolite of naloxone) only. Suspect use of naloxone (Narcan) within the past three days. ADDITIONAL INFORMATION This test was developed and its performance characteristics determined by [facility] in a manner consistent with CLIA requirements. This test has not been cleared or approved by the U.S. Food and Drug Administration. Test Performed by: [facility] [address] [place] [address] Procedures Date Code Description Status 11/25/2017 43654 Nerve Conduction 03-04 Studies Completed 11/25/2017 95332 Needle Electromyography Complete, Five Or More Muscles Completed Studied Encounters Type Date Location Provider Dx Diagnosis Office Visit 07/15/2018 [facility] Internal Delano Vikram, Z00.00 [facility]cntr for [facility] 8[facility] [employer] adult medical exam w/o abnormal findings E66.9 Obesity, unspecified F17.210 Nicotine dependence, cigarettes, uncomplicated Z23 Encounter for immunization F11.21 Opioid dependence, in remission Office Visit 05/28/2018 9:40a [facility] Internal Kelsea Oneal F11.21 Opioid dependence, Medicine Glenn ORTIZ in remission [address] F31.31 Bipolar disorder, current episode depressed, mild Office Visit 04/24/2018 11:20a [facility] Internal Vidal Massey F11.10 Opioid abuse, Meghana Wright M.D.,[facility] uncomplicated [address] F17.210 Nicotine dependence, cigarettes, uncomplicated Office Visit 02/13/2018 11:50a [facility] Internal Vidal Massey F31.31 Bipolar disorder, Meghana Wright M.D.,[facility] current episode [address] depressed, mild F11.10 Opioid abuse, uncomplicated M25.362 Other instability, left knee Office Visit 12/26/2017 11:20a [facility] Internal Vidal Massey M25.362 Other instability, Meghana Wright M.D.,[facility] left knee [address] F11.10 Opioid abuse, uncomplicated F17.210 Nicotine dependence, cigarettes, uncomplicated Office Visit 11/21/2017 11:20a [facility] Internal Vidal Massey F11.10 Opioid abuse, Meghana Wright M.D.,FACP uncomplicated [address] M79.2 Neuralgia and neuritis, unspecified Z23 Encounter for immunization Office Visit 10/10/2017 11:20a [facility] Internal Vidal Massey M79.2 Neuralgia and Meghana Wright M.D.,FACP neuritis, [address] unspecified F11.10 Opioid abuse, uncomplicated F17.210 Nicotine dependence, cigarettes, uncomplicated Office Visit 10/06/2017 [facility] Internal Charly M79.2 Neuralgia and 11:00a Meghana Jason M.D. 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 knee [address] D70.9 Neutropenia, unspecified R94.5 Abnormal results of liver function studies Office Visit 05/26/2017 11:20a [facility] Internal [place], M25.461 Effusion, right Medicine - M.D. knee [address] R Office Visit 05/15/2017 9:40a [facility] Internal Vidal Massey F31.31 Bipolar Meghana Wright M.D.,FACP disorder, [address] current episode depressed, mild F11.10 Opioid abuse, uncomplicated Office Visit 04/03/2017 12:50p [facility] Internal Vidal Massey F11.10 Opioid abuse, Meghana Wright M.D.,FACP uncomplicated [address] F31.31 Bipolar disorder, current episode depressed, mild Z23 Encounter for immunization Office Visit 03/04/2017 2:20p [facility] Internal Vidal Massey F11.10 Opioid abuse, Medicine - Millie Wright.,FACP uncomplicated [facility] Office Visit 02/13/2017 9:40a [facility] Internal Charly F31.31 Bipolar disorder , Medicine - Millie Jason. current episode [address] depressed, mild F11.10 Opioid abuse, uncomplicated Office Visit 11/07/2016 3:20p [facility] Internal [place] Rafimomo, F31.31 Bipolar Medicine - Luis disorder, [address] current episode depressed, mild F41.9 Anxiety disorder, unspecified F11.10 Opioid abuse, uncomplicated Plan of Treatment Future Appointment(s):01/08/2019 11:00 am - Kelsea Oneal MD at [facility] 10:40 am - Kelsea Oneal MD at [facility]07/2018 - Kelsea Oneal MDF11.21 Opioid dependence, in remissionNew Labs:Drug Abuse 20 Urine, Ordered: 10/07/18Follow up:3 yqxmcpX94.00 Insomnia, unspecifiedNew Medication:Zolpidem Tartrate 5 mg - one half to one tablet by mouth at bedtime, as needed for mjnprickE91.9 Acute upper respiratory infection , unspecifiedComments:You have a viral upper respiratory infection. You may take Robitussin DM as needed for your cough. For sinus congestion you may use saline nasal spray. You may find Afrin nasal spray helpful. Do not use this for more than 3 days in a row as you may get rebound sinus congestion. If your symptoms do not improve after 10 days, please give the office a call.R53.82 Chronic fatigue, unspecifiedFollow up:1-2 mo
[2018-10-11] MEDS ORDERED: Ondansetron ODT TAB* 4 MG SL ONE (13:54)
[2018-10-11] MEDS ORDERED: Ketorolac *IM* INJ* 60 MG/2 ML VIAL IM ONE (13:55)
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
[2018-10-11 15:19] VITALS: BP 113/81
== END 2018-10-11 15:26 | disposition home or self-care (01) ==
LOC: ED 12:47
DX: R51 Headache (principal); H57.11 Ocular pain, right eye; Y04.2XXA Assault by strike against or bumped into by another person, initial encounter; Y92.9 Unspecified place or not applicable; F17.210 Nicotine dependence, cigarettes, uncomplicated; Z88.1 Allergy status to other antibiotic agents
CPT/HCPCS: 70450; 96372; 99283; A9270-GY; J1885

== ENCOUNTER 2019-04-12 02:28 | Emergency (ER) | payer OTHER ==
[2019-04-12 04:01] LABS: ABS Eosinophils 0.1 10^3/ul (0-0.6); ABS Lymphocytes 1.6 10^3/ul (1.0-4.8); ABS Monocytes 0.3 10^3/ul (0-0.8); ABS Neutrophils 1.3 10^3/ul (1.5-7.7); Eosinophil % 2.8 %; Hematocrit 36 % (35-47); Hemoglobin 12.7 g/dL (12.0-16.0); Lymphocyte % 48.3 %; Mean Corpuscular HGB Conc 36 g/dL (31-36); Mean Corpuscular Hemoglobin 32 pg (27-31); Mean Corpuscular Volume 90 fL (80-97); Mean Platelet Volume 7.5 fL (7.4-10.4); Nucleated Red Blood Cells % 0.1; Platelet Count 249 10^3/uL (150-450); Red Blood Count 3.95 10^6 /uL (3.70-4.87); Red Cell Distribution Width 13 % (10-15); White Blood Count 3.4 10^3/uL (3.5-10.8)
[2019-04-12 04:08] LABS: INR 1.03 (0.82-1.09)
[2019-04-12 04:18] LABS: Albumin/Globulin Ratio 1.7 (1-3); BUN/Creatinine Ratio 23.2 (8-20); EGFR African American 149.9 (>60); EGFR Non-African American 123.9 (>60); Globulin 2.4 g/dL (2-4); Potassium 4.5 mmol/L (3.5-5.0); Total Bilirubin 0.2 mg/dL (0.2-1.0); Total Protein 6.4 g/dL (6.4-8.9)
--- NOTE | 2019-04-12 06:09 | ED ---
HPI Chest Pain - HPI Summary HPI Summary: 34-year-old female presents to the emergency department today complaining of "chest pressure" which began at 0000 this morning. Patient states she currently feels fine minute tearful in the room. Patient states she believes her symptoms are due to anxiety. Patient states she feels fine but was forced to come to the hospital because a customer at her place of work called an ambulance. Patient denies chest pain at this time, abdominal pain, fever, pain with urination, rash. Patient had no associated diaphoresis, arm pain, jaw pain , abdominal pain, shortness of breath, lightheadedness with her chest pressure. Patient currently desires to leave to return to work. Patient denies recent recreational drug use or call use. Surgical history family history is noncontributory. - History of Current Complaint Chief Complaint: EDChestWallPain Time Seen by Provider: 04/12/19 06:01 Hx Obtained From: Patient Hx Last Menstrual Period: 08/06/15 Onset/Duration: Started Hours Ago Timing: Intermittent, Lasting Minutes Initial Severity: Mild Current Severity: None Pain Intensity: 0 Pain Scale Used: 0-10 Numeric Chest Pain Location: Diffuse Chest Pain Radiates: No Character: Pressure/Squeezing Aggravating Factor(s): Nothing Alleviating Factor(s): Spontaneous Resolution Associated Signs and Symptoms: Positive: Anxiety, Recent Stress. Negative: Chest Pain, Shortness of Breath, Syncope, Fever, Lightheadedness, Diaphoresis, Nausea, Abdominal Pain - Allergy/Home Medications Allergies/Adverse Reactions: Allergies Allergy/AdvReac Type Severity Reaction Status Date / Time cefaclor [From [facility]] Allergy Hives Verified 10/11/18 12:54 PMH/Surg Hx/FS Hx/Imm Hx Endocrine/Hematology History: Denies: Hx Anticoagulant Therapy, Hx Blood Disorders, Hx Diabetes, Hx Thyroid Disease Cardiovascular History: Denies: Hx Hypertension Respiratory History: Denies: Hx Asthma, Hx Chronic Obstructive Pulmonary Disease (COPD) GI History: Denies: Hx Ulcer Sensory History: Denies: Hx Contacts or Glasses Opthamlomology History: Denies: Hx Contacts or Glasses - Surgical History Surgery Procedure, Year, and Place: Cholecystectomy. Tubal. T & A - Immunization History Immunizations Up to Date: Yes Infectious Disease History: No Infectious Disease History: Denies: Hx Hepatitis, Hx Human Immunodeficiency Virus (HIV), Traveled Outside the [place] in Last 30 Days - Family History Known Family History: Positive: Hypertension - Social History Alcohol Use: None Hx Substance Use: No Substance Use Type: Reports: None Substance Use Comment - Amount & Last Used: suboxone for maintence Hx Tobacco Use: No Smoking Status (MU): Light Every Day Tobacco Smoker Review of Systems Constitutional: Negative Eyes: Negative ENT: Negative Positive: Chest Pain. Negative: Palpitations Respiratory: Negative Gastrointestinal: Negative Genitourinary: Negative Musculoskeletal: Negative Skin: Negative Neurological: Negative Positive: Anxious. Negative: Depressed All Other Systems Reviewed And Are Negative: Yes Physical Exam - Summary Physical Exam Summary: Patient is tearful and conversation Triage Information Reviewed: Yes Vital Signs On Initial Exam: Initial Vitals Temp Pulse Resp BP Pulse Ox 98.6 F 55 18 111/77 98 04/12/19 02:50 04/12/19 02:50 04/12/19 02:50 04/12/19 02:50 04/12/19 02:50 Vital Signs Reviewed: Yes Appearance: Positive: Well-Appearing, No Pain Distress, Well-Nourished Skin: Positive: Warm, Skin Color Reflects Adequate Perfusion Eyes: Positive: EOMI, ALVARO ENT: Positive: Hearing grossly normal Respiratory/Lung Sounds: Positive: Clear to Auscultation, Breath Sounds Present Cardiovascular: Positive: RRR, S1, S2 Abdomen Description: Positive: Nontender, No Organomegaly, Soft. Negative: Distended, Guarding Bowel Sounds: Positive: Present Musculoskeletal: Positive: Strength/ROM Intact Neurological: Positive: Sensory/Motor Intact, Alert, Oriented to Person Place, Time, Normal Gait, Facial Symmetry, Speech Normal Psychiatric: Positive: Anxious AVPU Assessment: Alert Procedures - Sedation Patient Received Moderate/Deep Sedation with Procedure: No Diagnostics - Vital Signs Vital Signs Temp Pulse Resp BP Pulse Ox 04/12/19 02:50 98.6 F 55 18 111/77 98 - Laboratory Lab Results: Lab Results 04/12/19 04/12/19 04/12/19 Range/Units 03:55 03:55 03:55 WBC 3.4 L (3.5-10.8) 10^3/uL RBC 3.95 (3.70-4.87) 10^6 /uL Hgb 12.7 (12.0-16.0) g/dL Hct 36 (35-47) % MCV 90 (80-97) fL MCH 32 H (27-31) pg MCHC 36 (31-36) g/dL RDW 13 (10-15) % Plt Count 249 (150-450) 10^3/uL MPV 7.5 (7.4-10.4) fL Neut % (Auto) 37.9 % Lymph % (Auto) 48.3 % Lyman % (Auto) 10.2 % Eos % (Auto) 2.8 % Baso % (Auto) 0.8 % Absolute Neuts (auto) 1.3 L (1.5-7.7) 10^3/ul Absolute Lymphs (auto) 1.6 (1.0-4.8) 10^3/ul Absolute Monos (auto) 0.3 (0-0.8) 10^3/ul Absolute Eos (auto) 0.1 (0-0.6) 10^3/ul Absolute Basos (auto) 0.0 (0-0.2) 10^3/ul Absolute Nucleated RBC 0.0 10^3/ul Nucleated RBC % 0.1 INR (Anticoag Therapy) 1.03 (0.82-1.09) Sodium 138 (135-145) mmol/L Potassium 4.5 (3.5-5.0) mmol/L Chloride 108 (101-111) mmol/L Carbon Dioxide 27 (22-32) mmol/L Anion Gap 3 (2-11) mmol/L BUN 13 (6-24) mg/dL Creatinine 0.56 (0.51-0.95) mg/dL Est GFR ( Amer) 149.9 (>60) Est GFR (Non-Af Amer) 123.9 (>60) BUN/Creatinine Ratio 23.2 H (8-20) Glucose 94 (70-100) mg/dL Calcium 9.0 (8.6-10.3) mg/dL Total Bilirubin 0.20 (0.2-1.0) mg/dL AST 15 (13-39) U/L ALT 9 (7-52) U/L Alkaline Phosphatase 50 (34-104) U/L Troponin I 0.00 (<0.03) ng/mL Total Protein 6.4 (6.4-8.9) g/dL Albumin 4.0 (3.2-5.2) g/dL Globulin 2.4 (2-4) g/dL Albumin/Globulin Ratio 1.7 (1-3) Result Diagrams: 04/12/19 03:55 04/12/19 03:55 Lab Statement: Any lab studies that have been ordered have been reviewed, and results considered in the medical decision making process. Chest Pain Course/Dx - Course Course Of Treatment: Patient was evaluated in the emergency department today for resolved chest pressure. Vitals noted. EKG was done promptly which is normal sinus rhythm at a rate of 58 bpm. No evidence of STEMI. Normal axis, no T-wave inversion or evidence of ischemia. No priors available for comparison. Laboratory studies returned within normal limits. Initial troponin 0.00. Serial troponins deemed unnecessary as patient was symptomatic 4 hours prior to blood draw. Heart score 1. Patient isn't symptomatic at the time of discharge. Patient discharged to outpatient follow-up. - Chest Pain Differential Diagnosis/HQI/PQRI: Acute IL, ACS, Angina, Other: - anxiety - Diagnoses Provider Diagnoses: Chest pressure Discharge ED - Sign-Out/Discharge Documenting (check all that apply): Patient Departure - Discharge Plan Condition: Stable Disposition: HOME Patient Education Materials: Chest Pain (ED) Referrals: Kelsea Oneal MD [Primary Care Provider] - 3 Days Additional Instructions: You were seen in the emergency department today due to chest pain. Laboratory studies as well as an EKG were done which showed no evidence of acute medical problems requiring intervention at this time. Although your workup in the emergency department was unremarkable I cannot be certain your symptoms are not cardiac in origin. Please follow-up with your primary care provider in 3 days for further evaluation and management. Please return to the emergency department immediately if you develop any new or worsening symptoms. - Billing Disposition and Condition Condition: STABLE Disposition: Home
[2019-04-12 06:10] VITALS: BP 101/63
== END 2019-04-12 06:08 | disposition home or self-care (01) ==
LOC: ED 02:28
DX: R07.89 Other chest pain (principal); F17.200 Nicotine dependence, unspecified, uncomplicated; Z88.1 Allergy status to other antibiotic agents; Z90.49 Acquired absence of other specified parts of digestive tract; Z98.51 Tubal ligation status
CPT/HCPCS: 36415; 80053; 84484; 85025; 85610; 93005; 99283